=== PATIENT | male | born 1970 | race Caucasian/White ===

== ENCOUNTER → 2021-04-23 | Outpatient (CLI) | payer OTHER ==
--- NOTE | 2021-04-26 12:59 | KCIC ---
PROCEDURE: CT CALCIUM SCORE MD ORDERED COMPARISON: None. INDICATIONS: Coronary calcium screening. REPORTED RISK FACTORS: Hyperlipidemia. Family history. TECHNIQUE: Low-dose prospectively gated CT images of the heart were obtained and quantitative analys is of coronary artery calcification was performed. Comparison was made to a patient database of [facility] age and gender. One or more of the following individualized dose reduction techniques were utilized for this study: 1. ? Automated exposure control. 2. ? Adjustment of the mA and/or kV according to patient size. 3. ? Use of iterative reconstruction technique. RADIATION: Total Dose Length Product (DLP): 232.61 MGy-cm CT Dose Index Volume (CTDIvol): 14.87 mGy (highest value reported) BACKGROUND: Coronary artery calcification is a direct marker for coronary atherosclerosis. A coronar y artery calcium scan is a low dose CT scan which sums all visible calcium in the coronary tree to pr ovide each patient with a coronary artery calcium score (CACS). As the calcium score increases, so d oes future cardiovascular risk. The calcium score is superior to traditional risk factors for risk s tratification and permits more effective prevention strategies and tailored medical therapy. CALCIUM SCORE: Left main: 0 LAD: 7.2 LCX: 3.6 RCA: 0 Total Agatston Score: 10.8 OTHER OBSERVATIONS: Probable hepatic steatosis. Pleural-based nodular focus at the lateral aspect of the left lower lobe measuring 5 mm. Tiny nodules along the minor fissure, images 14 and 15 series 3. Possible 3.5 mm nodule at the upper aspect of the right lower lobe, image 7 series 3. Per Fleischner guidelines for incidental nodules under 6 mm, optional CT follow-up in 12 months if there are risk f actors. GUIDELINES BASED ON SCORE OF 10.8 Plaque is present. You have mild heart disease. Your chance of having a heart attack is moderate. Serge k with your doctor about quitting smoking, eating better, beginning an exercise program, and any othe r treatment you may need. References: 1. ACCF/AHA 2007 Clinical Expert Consensus Document on Coronary Artery Calcium Scoring by Computed T omography in Global Cardiovascular Risk Assessment and in Evaluation of Patients with Chest Pain Cir culation, 2007, 115:402-426 2. Emma et al. The [facility] [place] Heart Study, J Am [place] Cardiol, 2005, 46:158-65 3. Farzana Zambrano et al. Executive Summary of the Screening for Heart Attack Prevention and Eradication(S HAPE), Task Force Report, Am J Card, 2006, 98:2-15 4. Expert Panel on Detection, Evaluation, and Treatment of High Blood Cholesterol in Adults. 2000. E xecutive Summary of the Third Report of evaluation and treatment of high blood cholesterol in adults (Adult Treatment Panel III). RENEE, [id number] Electronically signed by: ALLAN MILLS MD (04/26/2021 12:56 PM) [id number]
== END ==
LOC: KCIC CT 09:01
PROVIDERS: ATTEND Physician Assistant Medical
DX: I25.10 Atherosclerotic heart disease of native coronary artery without angina pectoris (principal); I51.9 Heart disease, unspecified; R91.8 Other nonspecific abnormal finding of lung field; E78.5 Hyperlipidemia, unspecified
CPT/HCPCS: 75571